=== PATIENT | female | born 1985 | race Caucasian/White ===

== ENCOUNTER 2022-08-30 10:43 | Outpatient (CLI) | payer OTHER, SELFPAY ==
--- NOTE | ~2022-08-30 | US_ITS ---
US breast LT limited DATE: 08/30/2022 11:23 INDICATION: Left breast lump TECHNIQUE: Real-time and color flow imaging targeted at 4:00 near the nipple at area of clinical brig ht of left breast lump COMPARISON: None FINDINGS: There are 2 cysts measuring 3 mm and 5 mm maximal dimension at 4:00 near the nipple. No suspicious mass or shadowing is detected. IMPRESSION: Benign cysts at 4:00 near nipple BI-RADS Category 2: Benign Reviewed, dictated and finalized at [facility]. Reviewed, dictated and finalized at location [facility]. ER'S MATE
== END 2022-08-30 10:44 | disposition home or self-care (01) ==
PROVIDERS: PCP Physician Assistant; Visit Provider Physician Assistant
DX: N63.20 Unspecified lump in the left breast, unspecified quadrant (principal)
CPT/HCPCS: 76642

== ENCOUNTER 2023-07-01 11:15 | Emergency (ER) | payer OTHER, SELFPAY ==
[2023-07-01] VITALS (7 sets, daily range): BP systolic 121–148; BP diastolic 87–92; PULSE 66–80; RESP 13–18; TEMP 36.6; O2SAT 98–100
--- NOTE | ~2023-07-01 | XR_ITS ---
EXAMINATION: XR chest 2V DATE: 07/01/2023 11:43 INDICATION: Chest pain and shortness of breath TECHNIQUE: PA and lateral views of the chest are obtained. COMPARISON: None available FINDINGS: There is symmetric scarring of the lung apices. The lungs are free of acute opacities. No p leural effusion or pneumothorax. The cardiomediastinal silhouette is normal. There is mild thoracic s pondylosis. Surgical clips in the right upper quadrant are likely from prior cholecystectomy. IMPRESSION: 1. No acute cardiopulmonary abnormality. Reviewed, dictated and finalized at location [facility]. [employer]ACHINE [employer]CH[employer]IC SUPER[employer]OR
--- NOTE | 2023-07-01 11:30 | ECG_ITS ---
Measurements Intervals [place] Rate: 100 P: 53 [place]: 157 QRS: 28 QRSD: 92 T: 46 QT: 329 QTc: 425 Interpretive Statements SINUS TACHYCARDIA OTHERWISE NORMAL ECG NO PREVIOUS ECG AVAILABLE FOR COMPARISON Electronically Signed On 07-02-2023 10:26:39 UPPER TRIMMER by Macario Wheatley M.D.
[2023-07-01 11:41] LABS: Basophils Percent Auto 0.4 % (0.2-1.2); Eosinophils Absolute Auto 0.2 K/mm3 (0-0.3); Eosinophils Percent Auto 1.6 % (0-4.4); Hematocrit 42.5 % (37.0-47.0); Hemoglobin 14.2 g/dL (12.0-15.0); Immature Granulocyte Absolute 0.03 K/mm3 (0.00-0.031); Immature Granulocyte Percent A 0.3 % (0-0.5); Lymphocytes Absolute Auto 2.83 K/mm3 (0.9-3.2); Lymphocytes Percent Auto 28.3 % (18.3-44.2); Mean Corpuscular HGB Conc 33.4 g/dl (32-36); Mean Corpuscular Hemoglobin 35.8 pg (26-34); Mean Corpuscular Volume 107.1 fl (80-100); Mean Platelet Volume 9.3 fl (7.4-10.4); Monocytes Absolute Auto 0.6 K/mm3 (0.1-0.6); Monocytes Percent Auto 6.3 % (2.6-8.5); Neutrophils Absolute Auto 6.3 K/mm3 (1.3-6.7); Neutrophils Percent Auto 63.1 % (45.5-73.1); Platelet Count Result 277 k/mm3 (150-375); Red Blood Count 3.97 M/mm3 (4.2-5.4); Red Cell Distribution Width 13.5 % (11.5-14.5)
[2023-07-01 11:53] LABS: Alanine Aminotransferase 12 U/L (6-35); Albumin Level 4.5 g/dL (3.5-5.1); Alkaline Phosphatase 68 U/L (38-126); Anion Gap 9 mmol/L (8-16); Aspartate Amino Transferase 18 U/L (14-36); Bilirubin,Total 0.5 mg/dL (0.2-1.3); Blood Urea Nitrogen 7 mg/dL (7-17); Calcium 9.3 mg/dL (8.4-10.2); Carbon Dioxide 25 mmol/L (22-30); Chloride 104 mmol/L (98-107); Estimated CRCL calculation 98 ml/min; Estimated Glomerular Filt Rate > 60; Glucose 117 mg/dL (65-110); Lipase 51 U/L (23-300); Potassium 3.7 mmol/L (3.4-5.0); Sodium 138 mmol/L (137-145)
[2023-07-01 12:03] LABS: Partial Thromboplastin Time 25.4 SECONDS (22.3-36.8); Prothrombin Time 13.7 Seconds (11.1-14.7)
[2023-07-01 12:04] LABS: Troponin I < 0.012 ng/mL (0.000-0.034)
[2023-07-01] MEDS: ASPIRIN 81 MG CHEWABLE TABLET 324 MG PO (13:04)
[2023-07-01] MEDS: Please add drug allergy info to patient profile. 1 EACH XX (13:08)
--- NOTE | 2023-07-01 13:55 | ED.GENADULT ---
HPI - General Adult General Chief complaint: Chest Pain Stated complaint: shoulder pain, right chest pain Time Seen by Provider: 07/01/23 13:24 History of Present Illness HPI narrative: Patient is a 38-year-old female who presents to the emergency department this afternoon complaining of chest pain that is right side radiating to her right trapezius region. Patient admits that the pain is worse with movement and inspiration and subsides when she rests. She admits that she has had previous symptoms in the past but has never seen a physician for that and finally decided to get evaluated for this. Patient denies any shortness of breath, nausea, vomiting, abdominal pain, dysuria, hematuria, constipation, diarrhea, melena, hematochezia, fevers or chills. Patient also denies any headaches, dizziness, lightheadedness, blurry visions, focal weakness, numbness and or tingling. There are no other modifying, alleviating, or precipitating factors at this time. Related Data Allergies Allergy/AdvReac Type Severity Reaction Status Date / Time Sulfa (Sulfonamide Allergy Unknown Verified 07/01/23 12:56 Antibiotics) Review of Systems Review of Systems: All systems are reviewed and are negative unless stated otherwise in the HPI. Exam Narrative: General: Alert, awake, afebrile, in no acute distress. HEENT: PERRL, no rhinorrhea, no post nasal drip, oropharynx clear. Neck: Trachea midline, no JVD, no lymphadenopathy. Cardiovascular: Regular rate and rhythm, no murmurs, rubs or gallops, no peripheral edema. Respiratory: Clear to auscultation bilaterally, no tachypnea, no wheezing, no rhonchi, no rubs, no respiratory distress. Abdomen: Soft, nontender, nondistended, no rebound, no guarding, no peritoneal signs. Musculoskeletal: No joint swelling or deformity, normal muscle tone. Skin: No rashes or petechia, no signs of infection. Psychiatric: Alert and oriented, normal behavior and judgment for situation. Neurological: Alert and oriented to person, place, and time. Follows all commands. No focal deficits, speech is clear and fluent. Course Vital Signs Vital signs: Vital Signs Temperature 97.8 F 07/01/23 11:23 Pulse Rate 80 07/01/23 11:23 Respiratory Rate 16 07/01/23 11:23 Blood Pressure 148/92 H 07/01/23 11:23 Pulse Oximetry 100 07/01/23 11:23 Oxygen Delivery Room Air 07/01/23 11:23 Temperature 97.8 F 07/01/23 11:23 Pulse Rate 73 07/01/23 14:22 Respiratory Rate 16 07/01/23 14:22 Blood Pressure 121/90 07/01/23 13:27 Pulse Oximetry 98 07/01/23 14:22 Oxygen Delivery Room Air 07/01/23 12:55 Medical Decision Making MDM Narrative Medical decision making narrative: The patient was evaluated by myself in the emergency department. History is obtained from patient who is an independent historian and physical exam was performed. External medical records were reviewed at this time. IV was established and pertinent tests were ordered. EKG was obtained which revealed sinus tachycardia at a rate of 100 beats per minute. No ST changes, T wave inversions or evidence of acute ischemia. EKG was independently interpreted by me and is currently pending official cardiology read. Laboratory results obtained including a troponin and a D-dimer revealing no acute process. Imaging studies obtained included CXR which was independently interpreted by me revealing no acute process, which is pending final radiology interpretation. Differential diagnosis considerations include costochondritis, pneumonia, viral syndrome, and pulmonary emboli. I have evaluated and discussed social determinants of health with the patient that could potentially impact subsequent diagnosis and treatment plans. On repeat assessment of the patient, reevaluation revealed that the patient is doing well and is in no acute distress. Patient symptoms have improved since she arrived to our emergency department. Repeat vital signs w
[2023-07-01 14:18] LABS: D Dimer 0.32 ug/mL (<0.48)
--- NOTE | 2023-07-01 14:42 | ECG_ITS ---
Measurements Intervals [place] Rate: 60 P: 40 [place]: 165 QRS: 22 QRSD: 91 T: 29 QT: 385 QTc: 386 Interpretive Statements SINUS RHYTHM NORMAL ECG COMPARED TO ECG 07/01/2023 11:22:22 SINUS RHYTHM NOW PRESENT Electronically Signed On 07-02-2023 10:32:15 LICENSE EXAMINER by Macario Wheatley M.D.
[2023-07-01 14:57] LABS: Troponin I < 0.012 ng/mL (0.000-0.034)
[2023-07-01 15:39] LABS: Influenza A QL RT-PCR Negative (Negative); Influenza B QL RT-PCR Negative (Negative); SARS-CoV-2 RNA PCR Negative (Negative)
== END 2023-07-01 15:22 | disposition home or self-care (01) ==
PROVIDERS: Emergency Provider Emergency Medicine; PCP Physician Assistant
DX: R07.9 Chest pain, unspecified (principal); Z20.822 Contact with and (suspected) exposure to COVID-19
CPT/HCPCS: 36415; 71046; 80053; 83690; 84484; 85025; 85380; 85610; 85730; 87636; 93005; 99284; A9270